=== PATIENT | male | born 1980 | race Caucasian/White ===

== ENCOUNTER 2016-10-08 11:50 | Emergency (ER) | payer BC, OTHER ==
--- NOTE | 2016-10-08 12:47 | EDM.PDOC ---
ED HISTORY OF PRESENT ILLNESS - General Chief Complaint: Chest Pain Stated Complaint: CHEST PAIN Time Seen by Provider: 10/08/16 12:45 Source of Information: Reports: Patient History Limitations: Reports: No limitations - History of Present Illness INITIAL COMMENTS - FREE TEXT/NARRATIVE: HISTORY AND PHYSICAL: History of present illness: [36-year-old male with no significant past medical history now presents emergency department complaining of intermittent sudden momentary stabbing left chest pain over the last 2 days. She is a smoker but he has no history of hypertension elevated cholesterol or diabetes. His father a pulse of coronary artery disease at 50 years old the patient has never had a cardiac workup himself. Patient denies shortness of air nausea vomiting diaphoresis. He has no productive cough or fever. Patient denies any exertional symptomatology whatsoever. EKG with normal sinus rhythm at a rate of 80 normal axis no STEMI] Review of systems: As per history of present illness and below otherwise all systems reviewed and negative. Past medical history: As per history of present illness and as reviewed below otherwise noncontributory. Surgical history: As per history of present illness and as reviewed below otherwise noncontributory. Social history: No reported history of drug or alcohol abuse. Family history: As per history of present illness and as reviewed below otherwise noncontributory. Physical exam: HEENT: Atraumatic, normocephalic, pupils reactive, negative for conjunctival pallor or scleral icterus, mucous membranes moist, throat clear, neck supple, nontender, trachea midline. Lungs: Clear to auscultation, breath sounds equal bilaterally, chest nontender. No skin changes. No subcutaneous air. Heart: S1S2, regular, negative for clicks, rubs, or JVD. Abdomen: Soft, nondistended, nontender. Negative for masses or hepatosplenomegaly. Negative for costovertebral tenderness. Pelvis: Stable nontender. Genitourinary: Deferred. Rectal: Deferred. Extremities: Atraumatic, negative for cords or calf pain. Neurovascular unremarkable. Neuro: Awake, alert, oriented. Cranial nerves II through XII unremarkable. Cerebellum unremarkable. Motor and sensory unremarkable throughout. Exam nonfocal. Diagnostics: [EKG with a normal sinus rhythm at 80, normal axis, no STEMI, ], chest x-ray interpreted by me normal no acute disease Therapeutics: [] Impression: [Nonspecific chest pain, pleurisy] Plan: [Signs and symptoms consistent with chest pain of pleuritic origin. Patient has no tenderness. He is well-appearing. EKG is completely normal. Patient's only cardiac risk factors are tobacco abuse and a family history with his father evolving CAD at 50 years old. Workup is pending if Troponin unremarkable anticipate outpatient followup as patient's heart score is 2 consistent with lowest risk category. Definitive disposition and diagnosis as appropriate pending reevaluation and review of above. - Related Data Allergies/ADRs: Allergies Allergy/AdvReac Type Severity Reaction Status Date / Time ibuprofen Allergy Rash Verified 10/08/16 12:23 Home Meds: Home Meds . [No Known Home Meds] 10/08/16 [History] Past Medical History Cardiovascular History: Reports: Heart murmur - Infectious Disease History Infectious Disease History: Reports: Chicken pox - Past Surgical History Cardiovascular Surgical History: Reports: None Social & Family History - Tobacco Use Smoking Status *Q: Current Every Day Smoker Years of Tobacco use: 20 Packs/Tins Daily: 0.5 - Caffeine Use Caffeine Use: Reports: None - Recreational Drug Use Recreational Drug Use: No ED ROS GENERAL - Review of Systems Review Of Systems: See Below (See history of present illness) ED EXAM, GENERAL - Physical Exam Exam: See Below (See history of present illness) Course - Vital Signs Last Recorded V/S: Last Vital Signs Temp 36.3 C 10/08/16 12:27 Pulse 85 10/08/16 12:27 Resp 16 10/08/16 12:27 BP 136/87 10/08/16 12:27 Pulse Ox 96 10/08/16 12:27 - Orders/Labs/Meds Orders: Active Orders 24 hr Category Date Time Status EKG Documentation Completion [RC] STAT Care 10/08/16 11:59 Active Labs: Laboratory Tests 10/08/16 10/08/16 10/08/16 Range/Units 13:40 13:40 13:40 WBC 10.90 (4.0-11.0) K/uL RBC 5.29 (4.50-5.90) M/uL Hgb 17.1 H (13.0-17.0) g/dL Hct 47.9 (38.0-50.0) % MCV 90.5 (80.0-98.0) fL MCH 32.3 H (27.0-32.0) pg MCHC 35.7 (31.0-37.0) g/dL RDW Std Deviation 44.8 (28.0-62.0) fl RDW Coeff of Trip 14 (11.0-15.0) % Plt Count 172 (150-400) K/uL MPV 11.20 (7.40-12.00) fL Neut % (Auto) 67.9 (48.0-80.0) % Lymph % (Auto) 24.9 (16.0-40.0) % Sherman % (Auto) 6.1 (0.0-15.0) % Eos % (Auto) 0.8 (0.0-7.0) % Baso % (Auto) 0.3 (0.0-1.5) % Neut # 7.4 H (1.4-5.7) K/uL Lymph # 2.7 H (0.6-2.4) K/uL Sherman # 0.7 (0.0-0.8) K/uL Eos # 0.1 (0.0-0.7) K/uL Baso # 0.0 (0.0-0.1) K/uL Nucleated RBC % 0.0 /100WBC Nucleated RBCs # 0 K/uL Sodium 138 (136-146) mmol/L Potassium 4.1 (3.5-5.1) mmol/L Chloride 106 (98-110) mmol/L Carbon Dioxide 20 L (21-31) mmol/L BUN 13 (6.0-23.0) mg/dL Creatinine 1.0 (0.6-1.5) mg/dL Est Cr Clr Drug Dosing 113.17 mL/min Estimated GFR (MDRD) > 60.0 ml/min Glucose 110 (60-110) mg/dL Calcium 9.6 (8.8-10.8) mg/dL Total Bilirubin 0.4 (0.1-1.5) mg/dL AST 23 (5-40) IU/L ALT 37 (8-54) IU/L Alkaline Phosphatase 87 (40-150) Troponin I < 0.10 (0.0-0.29) NG/ML Total Protein 8.4 H (6.0-8.0) g/dL Albumin 4.5 (3.5-5.0) g/dL Globulin 3.9 H (2.0-3.5) g/dL Albumin/Globulin Ratio 1.2 L (1.3-2.8) Meds: Medications Discontinued Medications Generic Name Dose Route Start Last Admin Trade Name Tyson PRN Reason Stop Dose Admin Aspirin 324 mg 10/08/16 13:32 10/08/16 13:40 Aspirin PO 10/08/16 13:33 324 mg ONETIME ONE Administration Departure - Departure Time of Disposition: 14:25 Disposition: Home, Self-Care 01 Condition: good Clinical Impression: Nonspecific chest pain, Pleurisy Instructions: Nonspecific Chest Pain, [id number] Referrals: PCP,None [Primary Care Provider] - [facility] [Outside] Forms: ED Department Discharge Additional Instructions: It appears that your chest pain recently is caused by pleurisy. This means irritation of the lung lining. Is not threatening but can be very uncomfortable. He workup in the emergency department was negative meaning nothing significantly wrong was found. Take ibuprofen 800 mg every 6 hours as needed for pain. Stop smoking. Followup with a [facility] for reevaluation and further workup as needed. It is important to establish relationship with a primary care Dr. for your ongoing health care. Return immediately for new severe or worsening symptoms. - My Orders Last 24 Hours: My Active Orders 10/08/16 11:59 EKG Documentation Completion [RC] STAT - Assessment/Plan Last 24 Hours: My Active Orders 10/08/16 11:59 EKG Documentation Completion [RC] STAT
[2016-10-08] MEDS ORDERED: Aspirin 81 MG Tab.Chew PO ONE (13:32)
[2016-10-08 14:14] LABS: CHLORIDE,CL 106 mmol/L (98-110); SODIUM,NA 138 mmol/L (136-146)
--- NOTE | 2016-10-08 14:20 | CR ---
EXAMINATION: Portable chest radiograph. HISTORY: Chest pain. FINDINGS: The trachea is midline. The cardiomediastinal silhouette is within normal limits. No pulmonary infil trates, effusions or pneumothorax. Osseous structures appear unremarkable. IMPRESSION: No acute cardiopulmonary process.
[2016-10-08 14:45] VITALS: BP 132/93
== END 2016-10-08 14:40 | disposition home or self-care (01) ==
LOC: MW.ED 11:50
DX: R09.1 Pleurisy (principal); F17.210 Nicotine dependence, cigarettes, uncomplicated; Z88.6 Allergy status to analgesic agent
CPT/HCPCS: 36415; 71010; 80053; 84484; 85025; 93005; 99285; A9270; 99284